=== PATIENT | male | born 1985 | race African-American/Black ===

== ENCOUNTER 2021-02-10 17:03 | Emergency (ER) | payer OTHER ==
[2021-02-10] MEDS ORDERED: KEFLEX250 MG PO (19:45)
== END 2021-02-10 20:00 | disposition home or self-care (01) ==
LOC: FER 17:03
DX: S61.431A Puncture wound without foreign body of right hand, initial encounter (principal); W45.0XXA Nail entering through skin, initial encounter; Y92.89 Other specified places as the place of occurrence of the external cause; Y99.0 Civilian activity done for income or pay; Z23 Encounter for immunization
CPT/HCPCS: 73130; 90471; 90714